=== PATIENT | male | born 1985 | race Two or more races ===

== ENCOUNTER 2025-01-30 22:21 | Emergency (ER) | payer SELFPAY ==
[2025-01-30] MEDS ORDERED: Sodium Chloride 0.9% 10 ML Syringe FLUSH PRN (22:51)
[2025-01-30 23:07] LABS: BASOPHILS ABSOLUTE AUTO 0.0 x10^3/uL (0.0-0.2); BASOPHILS PERCENT AUTO 0.3 % (0.2-1.2); EOSINOPHILS ABSOLUTE AUTO 0.0 x10^3/uL (0.0-0.5); EOSINOPHILS PERCENT AUTO 0.6 % (0.0-4.0); IMMATURE GRAN ABSOLUTE AUTO 0.02 x10^3/uL (0.00-0.07); IMMATURE GRAN PERCENT AUTO 0.60 % (0.00-0.43); LYMPHOCYTES ABSOLUTE AUTO 0.9 x10^3/uL (1.0-4.8); LYMPHOCYTES PERCENT AUTO 28.5 % (25.0-50.0); MONOCYTES ABSOLUTE AUTO 0.1 x10^3/uL (0.0-0.8); MONOCYTES PERCENT AUTO 3.2 % (2.0-11.0); NEUTROPHILS ABSOLUTE AUTO 2.1 x10^3/uL (1.8-7.7); NEUTROPHILS PERCENT AUTO 66.8 % (50.0-80.0); PLATELET COUNT,PLT 272 x10^3/uL (130-400); RED BLOOD CELL COUNT 5.13 x10^6/uL (4.5-6.0); WHITE BLOOD CELL COUNT,WBC 3.1 x10^3/uL (4.0-10.0)
[2025-01-30] MEDS: Heparin Sodium/0.45% NaCl 25,000 UNITS/250 ML BAG IV STA (23:16)
[2025-01-30] MEDS: Heparin Sodium 5,000 Units/ML Vial IVPUSH ONE (23:16)
[2025-01-30 23:24] LABS: A/G RATIO 0.2; ALANINE AMINOTRANSFERASE,ALT 47.0 U/L (16-63); ASPARTATE AMNIOTRANSFERASE,AST 98.0 U/L (15-37); BILIRUBIN TOTAL 0.6 mg/dL (0.2-1.0); CARBON DIOXIDE,CO2 18.0 mmol/L (21-32); CHLORIDE,CL 102.0 mmol/L (98-107); CREATININE 2.1 mg/dL (0.70-1.30); EST CRCL DRUG DOSING (CG) 39.05 mL/min; GLUCOSE RANDOM 109.0 mg/dL (70-99); INR 1.1 (0.9-1.1); POTASSIUM,K 3.7 mmol/L (3.5-5.1); PROTEIN TOTAL,TP 9.0 g/dL (6.4-8.2); PTT,PARTIAL THROMBOPLSTIN TIME 30.6 SEC (23.5-33.2); SODIUM,NA 136.0 mmol/L (136-145); TSH ULTRASENSITIVE 3.219 uIU/mL (0.358-3.74)
[2025-01-30] MEDS: Nitroglycerin 0.4 MG Tab.SL SL ONE (23:25)
[2025-01-30 23:26] LABS: BLOOD UREA NITROGEN,BUN 86.0 mg/dL (7-18); ESTIMATED GFR 39.0 mL/min (>=60)
[2025-01-31] MEDS ORDERED: Ondansetron 4 MG/2 ML SDV ONE (00:30)
== END 2025-01-30 23:33 | disposition short-term general hospital (02) ==
LOC: VM.ED 22:21 → EDBD 22:21 → VM.ED 23:33
DX: R07.2 Precordial pain (principal); N17.9 Acute kidney failure, unspecified
CPT/HCPCS: 71045; 80053; 84443; 84484; 85025; 85610; 85730; 93005; 93010; 96365; 96375; 99284; 99285-25; A9270-GY; J0696; J1644